=== PATIENT | male | born 1975 | race Caucasian/White ===

== ENCOUNTER 2016-12-21 20:57 | Emergency (ER) | payer SELFPAY ==
[~2016-12-21] VITALS: Ht 172.7 cm; Wt 63.6 kg
[~2016-12-21 20:57] MED LIST: ALPR1TAB2 PO
[2016-12-21 21:02] VITALS: BP 141/80; PULSE 118; RESP 16; O2SAT 98
--- NOTE | 2016-12-21 21:21 | DRSVH ---
PROCEDURE: X-RAY CHEST, TWO VIEWS ([id number]) INDICATIONS: Leg swelling TECHNIQUE: 2 views of the chest were acquired. COMPARISON: None. FINDINGS: Surgical changes and devices: None. Lungs and pleura: No pleural effusions or pneumothorax. Lungs are clear. Mediastinum: Mediastinal contours are normal. Heart size is normal. Bones and chest wall: No suspicious bony abnormalities. Soft tissues appear unremarkable. IMPRESSION: No acute process. Dictated by: Zaida Wilkins M.D. on 12/21/2016 at 21:20 Approved by: Zaida Wilkins M.D. on 12/21/2016 at 21:20
[2016-12-21 23:08] LABS: BASOPHILS % (AUTO) 0.3 % (0-3); EOSINOPHILS % (AUTO) 2.9 % (0-5); MONOCYTES % (AUTO) 10.8 % (4-12); Mean Corpuscular Hemoglobin 32.2 pg (27.0-35.0); Mean Corpuscular Volume 94.9 fL (81-100); NEUTROPHILS % (AUTO) 68.2 % (40-74); Platelet Count 308 bil/L (150-400)
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
[2016-12-22] MEDS ORDERED: FUR20 PO (02:17)
[2016-12-22] MEDS ORDERED: POTA10CA42 PO (02:17)
[2016-12-22 02:24] VITALS: BP 136/82; PULSE 96; RESP 14; O2SAT 98
--- NOTE | 2016-12-22 08:33 | DRSVH ---
PROCEDURE: US VENOUS LEG DUPLEX BILATERAL INDICATIONS: bilateral edema TECHNIQUE: Real-time imaging, as well as color and pulse Doppler interrogation, were performed of the deep veins of both legs from the inguinal ligament to the popliteal fossa. COMPARISON: None. FINDINGS: The deep veins are normally compressible, and free of intraluminal thrombus. Color and pu lse Doppler demonstrate normal phasic intravascular flow. There is normal augmentation response to d istal compression maneuver. Prominent morphologically normal appearing groin lymph nodes largest manav suring 8 mm. Moderate bilateral lower extremity edema. IMPRESSION: No deep venous thrombosis identified within either the left or right lower extremities. Prominent lymph nodes present within the right and left groin Recommend clinical correlation and management. Dictated by: Jewel MACHADO Interpreted: Rudy Rodriguez MD on 12/22/2016 at 8:33 Transcribed by: JESSICA on 12/22/2016 at 8:33 Approved by: Rudy Rodriguez M.D. on 12/22/2016 at 9:53
== END 2016-12-22 02:25 | disposition home or self-care (01) ==
LOC: SED 20:57
DX: R60.9 Edema, unspecified (principal); F41.9 Anxiety disorder, unspecified; F17.200 Nicotine dependence, unspecified, uncomplicated; Z86.14 Personal history of Methicillin resistant Staphylococcus aureus infection